=== PATIENT | female | born 1995 | race African-American/Black ===

== ENCOUNTER 2018-03-14 01:50 | Emergency (ER) | payer SELFPAY ==
[~2018-03-14] VITALS: Ht 177.8 cm; Wt 111.1 kg
[~2018-03-14 01:50] MED LIST: HYDR-3454 PO
--- OUTSIDE RECORDS SUMMARY | 2018-03-14 01:58 | XMS REPORT ---
Author Author ETHAN GONSALES Organization [facility] Address [address] [place] [address] Care Team Providers Care Dirt Bike Racer Name Role Phone ETHAN GONSALES Unavailable PROBLEMS Type Condition ICD9-CM Code BEM02-IJ Code Onset Dates Condition Status SNOMED Code Problem Gastroesophageal reflux disease, esophagitis presence not specified K21.9 Active 080008337 Problem Acanthosis nigricans L83 Active 352394485 Problem Attention deficit hyperactivity disorder (ADHD), combined type F90.2 Active 69125156 Problem Anxiety F41.9 Active 42727985 Problem Obesity (BMI 30.0-34.9) E66.9 Active 506502637575873 ALLERGIES No Known Allergies SOCIAL HISTORY Never Assessed PLAN OF CARE Activity Details Follow Up prn Reason: VITAL SIGNS Height 70 in 2016-08-22 Weight 239.0 lbs 2016-08-22 Temperature 97.0 degrees Fahrenheit 2016-08-22 Heart Rate 68 bpm 2016-08-22 Respiratory Rate 20 2016-08-22 BMI 34.29 kg/m2 2016-08-22 Blood pressure systolic 118 mmHg 2016-08-22 Blood pressure diastolic 70 mmHg 2016-08-22 MEDICATIONS Medication Instructions Dosage Frequency Start Date End Date Duration Status Sucralfate 1 GM Orally QID 1 tablet before meals and at bedtime 6h July, Aug, 14 days Active RESULTS No Results PROCEDURES No Known procedures IMMUNIZATIONS No Known Immunizations MEDICAL (GENERAL) HISTORY Type Description Date Medical History childhood asthma Medical History Anxiety disorder Medical History ADHD Surgical History appendectomy Hospitalization History Surgery(s) only
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
--- OUTSIDE RECORDS SUMMARY | 2018-03-14 01:58 | XMS REPORT | Continuity of Care Document ---
Author Author [facility] Organization [facility] Address Unknown Phone Unavailable Allergies Active Description Code Type Severity Reaction Onset Reported/Identified Relationship to Patient Clinical Status Yes No Known Drug Allergies [id number] Drug Allergy Unknown N/A 06/24/2015 Medications There is no data. Problems Date Dx Coded Attending Type Code Diagnosis Diagnosed By 06/24/2015 CURLY BALL, ABNER Layne Ot K35.80 06/30/2015 ABNER RAWLS MD Ot K35.80 07/02/2015 CURLY BALL, ABNER Layne Ot K35.80 Procedures There is no data. Results Test Result Range CBC With Differential/Platelet - 07/17/16 14:55 WBC 5.5 x10E3/uL 3.4-10.8 RBC 4.72 x10E6/uL 3.77-5.28 Hemoglobin 12.7 g/dL 11.1-15.9 Hematocrit 39.4 % 34.0-46.6 MCV 84 fL 79-97 MCH 26.9 pg 26.6-33.0 MCHC 32.2 g/dL 31.5-35.7 RDW 14.2 % 12.3-15.4 Platelets 344 x10E3/uL 150-379 Neutrophils 61 % Lymphs 27 % Monocytes 10 % Eos 2 % Basos 0 % Neutrophils (Absolute) 3.4 x10E3/uL 1.4-7.0 Lymphs (Absolute) 1.5 x10E3/uL 0.7-3.1 Monocytes(Absolute) 0.6 x10E3/uL 0.1-0.9 Eos (Absolute) 0.1 x10E3/uL 0.0-0.4 Baso (Absolute) 0.0 x10E3/uL 0.0-0.2 Immature Granulocytes 0 % Immature Grans (Abs) 0.0 x10E3/uL 0.0-0.1 Comp. Metabolic Panel (14) - 07/17/16 14:55 Glucose, Serum 82 mg/dL 65-99 BUN 13 mg/dL 6-20 Creatinine, Serum 0.64 mg/dL 0.57-1.00 eGFR If NonAfricn Am 130 mL/min/1.73 >59 eGFR If Africn Am 150 mL/min/1.73 >59 BUN/Creatinine Ratio 20 9-23 Sodium, Serum 143 mmol/L 134-144 Potassium, Serum 4.2 mmol/L 3.5-5.2 Chloride, Serum 102 mmol/L 96-106 Carbon Dioxide, Total 24 mmol/L 18-29 Calcium, Serum 9.4 mg/dL 8.7-10.2 Protein, Total, Serum 7.1 g/dL 6.0-8.5 Albumin, Serum 4.6 g/dL 3.5-5.5 Globulin, Total 2.5 g/dL 1.5-4.5 A/G Ratio 1.8 1.2-2.2 Bilirubin, Total 0.5 mg/dL 0.0-1.2 Alkaline Phosphatase, S 76 IU/L 39-117 AST (SGOT) 19 IU/L 0-40 ALT (SGPT) 18 IU/L 0-32 Lipid Panel - 07/17/16 14:55 Cholesterol, Total 167 mg/dL 100-169 Triglycerides 75 mg/dL 0-89 HDL Cholesterol 45 mg/dL >39 VLDL Cholesterol Dre 15 mg/dL 5-40 LDL Cholesterol Calc 107 mg/dL 0-109 Hemoglobin A1c - 07/17/16 14:55 Hemoglobin A1c 5.3 % 4.8-5.6 Thyroid Antibodies - 07/17/16 14:55 Thyroid Peroxidase (TPO) Ab 22 IU/mL 0-26 Thyroglobulin Antibody 3.4 IU/mL 0.0-0.9 Insulin - 07/17/16 14:55 Insulin 15.7 uIU/mL 2.6-24.9 TSH - 08/18/16 13:11 TSH 1.700 uIU/mL 0.450-4.500 Encounters ACCT No. Visit Date/Time Discharge Status Pt. Type Provider Facility Loc./Unit Complaint [id number] 06/24/2015 03:50:00 06/24/2015 16:00:00 DIS Outpatient CURLY BALL, ABNER Layne [facility] [id number] 07/18/2016 12:08:00 Document Registration [id number] 03/12/2018 11:50:00 ACT Outpatient [facility] [id number] 08/19/2016 07:06:00 Document Registration
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
--- OUTSIDE RECORDS SUMMARY | 2018-03-14 01:58 | XMS REPORT ---
Author STANLEY Stanley Organization [employer] Address Unknown Phone Unavailable Care Team Providers Care Language Specialist Name Role Phone STANLEY GEIGER CP Unavailable Allergies, Adverse Reactions, Alerts Substance Reaction Event Type N.K.D.A. Info Not Available Non Drug Allergy Problems Problem Type Condition Code Onset Dates Condition Status Problem Generalized anxiety disorder F41.1 Active Problem Depressive disorder, not elsewhere classified F32.9 Active Problem Attention deficit disorder with hyperactivity F90.9 Active Assessment Dental examination Z01.20 Active Problem Stress headaches F45.41 Active Problem Obesity E66.9 Active Medications No Known Medications Procedures Procedure Coding System Code Date RESIN COMPOS - 3 SURFACES POSTERIOR CPT-4 D2393 June 10, 2015 Vital Signs Date/Time: June 10, 2015 Blood Pressure Diastolic 75 mmHg Blood Pressure Systolic 110 mmHg Results No Known Results Summary Purpose [employer] Submission
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
--- OUTSIDE RECORDS SUMMARY | 2018-03-14 01:58 | XMS REPORT ---
Author Author GETACHEW IZAGUIRRE [facility] Address [address] [place] [address] Care Team Providers Care [employer] Advisor Name Role Phone GETACHEW IZAGUIRRE Unavailable PROBLEMS Type Condition ICD9-CM Code [id number] Code Onset Dates Condition Status SNOMED Code Problem Gastroesophageal reflux disease, esophagitis presence not specified K21.9 Active 011607370 Problem Acanthosis nigricans L83 Active 448474945 Problem Attention deficit hyperactivity disorder (ADHD), combined type F90.2 Active 99611234 Problem Anxiety F41.9 Active 95501304 Problem Obesity (BMI 30.0-34.9) E66.9 Active [id number] ALLERGIES No Information SOCIAL HISTORY Never Assessed PLAN OF CARE VITAL SIGNS MEDICATIONS No Known Medications RESULTS No Results PROCEDURES No Known procedures IMMUNIZATIONS No Known Immunizations MEDICAL (GENERAL) HISTORY Type Description Date Medical History childhood asthma Medical History Anxiety disorder Medical History ADHD Surgical History appendectomy Hospitalization History Surgery(s) only
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
--- NOTE | 2018-03-14 02:25 | ED General ---
General Chief Complaint: Oral/Throat Problems Stated Complaint: SORE THROAT,POSS FEVER,VOMITING Nursing Triage Note: sore throat x3 days, reflux tonight. Nursing Sepsis Screen: No Definite Risk Source of Information: Patient Exam Limitations: No Limitations History of Present Illness Date Seen by Provider: Mar 14, 2018 Time Seen by Provider: 02:00 Initial Comments This 22-year-old young lady presents to the emergency room with sore throat, fever, and recent vomiting. She has had sore throat 3 days. She was seen at the clinic yesterday. No antibiotics were prescribed. She reports a strep test was negative. Since symptoms have been present for 3 days, influenza screening and treatment would not be appropriate. She is afebrile at present. She states she decided to come to the emergency room tonight because her throat felt tight and she was concerned that she may have trouble breathing. Allergies and Home Medications Allergies Coded Allergies: No Known Drug Allergies (Unverified , 06/24/15) Patient Home Medication List Home Medication List Reviewed: Yes Review of Systems Review of Systems Constitutional: see HPI EENTM: see HPI Respiratory: see HPI Cardiovascular: no symptoms reported Gastrointestinal: see HPI Genitourinary: no symptoms reported : No Musculoskeletal: no symptoms reported Skin: no symptoms reported Psychiatric/Neurological: No Symptoms Reported Hematologic/Lymphatic: No Symptoms Reported Immunological/Allergic: no symptoms reported Past Wsdptbr-Xvqzlo-Otkzgn Hx Past Med/Social Hx: Reviewed Nursing Past Med/Soc Hx Patient Social History Alcohol Use: Denies Use Recreational Drug Use: No Smoking Status: Never a Smoker 2nd Hand Smoke Exposure: No Recent Foreign Travel: No Contact w/Someone Who Travel: No Recent Infectious Disease Expo: No Recent Hopitalizations: No Immunizations Up To Date Tetanus Booster (TDap): Unknown PED Vaccines UTD: Yes Seasonal Allergies Seasonal Allergies: Yes Past Medical History Surgeries: Yes Appendectomy Respiratory: No Currently Using CPAP: No Currently Using BIPAP: No Cardiac: No Neurological: No : No Reproductive Disorders: No Female Reproductive Disorders: Denies Sexually Transmitted Disease: No HIV/AIDS: No Genitourinary: No Gastrointestinal: No Musculoskeletal: No Endocrine: No HEENT: No Cancer: No Psychosocial: No Integumentary: No Blood Disorders: No Family Medical History FH: anemia 20 MOTHER Physical Exam Vital Signs Vital Signs - First Documented 03/14/18 01:55 Temp 98.8 Pulse 99 Resp 16 B/P (MAP) 124/74 (91) Pulse Ox 99 O2 Delivery Room Air Capillary Refill : Less Than 3 Seconds Height, Weight, BMI Height: 5'10.00" Weight: 245lbs. 0.0oz. 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 Norm as Tested Skin: Normal Color, Warm/Dry Progress/Results/Core Measures Suspected Sepsis Recent Fever Within 48 Hours: No Infection Criteria Present: None New/Unexplained Altered Menta: No Sepsis Screen: No Definite Risk SIRS Temperature:98.8 Pulse: 99 Respiratory Rate: 16 Blood Pressure 124 /74 Mean: 91 Results/Orders Lab Results Laboratory Tests Test 03/14/18 02:05 Range/Units Group A Streptococcus Screen NEGATIVE NEGATIVE My Orders Orders - ZENON BARAJAS MD Rapid Strep A Screen (03/14/18 02:08) Vital Signs/I&O Capillary Refill : Less Than 3 Seconds Blood Pressure Mean: 91 Progress Note : Progress Note On exam patient had no significant swelling of her oropharynx. She was moving air quite well with normal breath sounds. A repeat rapid strep was performed and was also negative. Treatment of symptoms was discussed with the patient. Departure Impression Primary Impression: Flu-like symptoms Additional Impression: Viral pharyngitis Disposition: HOME, SELF-CARE Condition: Improved Departure-Patient Inst. Decision time for Depature: 02:23 Referrals: [facility] (PCP/Family) Primary Care Physician Patient Instructions: Viral Pharyngitis (DC) Add. Discharge Instructions: Drink plenty of clear liquids. For pain you may take ibuprofen up to 600 mg every 6 hours as needed and/or Tylenol (acetaminophen) up to 1000 mg every 6 hours. A backup strep culture will be performed. Results should be available in about 48 hours. You may contact your primary care provider or the ER if you have like to receive results promptly. Return to care if symptoms are worsening or not improving as you expect. All discharge instructions reviewed with patient and/or family. Voiced understanding. Work/School Note: Work Release Form Date Seen in the Emergency Department: Mar 14, 2018 Return to Work: Mar 16, 2018 Restrictions: Return-No Fever (24hrs) ZENON BARAJAS MD Mar 14, 2018 02:25
[2018-03-14 02:27] VITALS: BP 124/74
== END 2018-03-14 02:27 | disposition home or self-care (01) ==
LOC: EDUNIT# 01:50 → ER 01:54
DX: J02.9 Acute pharyngitis, unspecified (principal); J11.1 Influenza due to unidentified influenza virus with other respiratory manifestations; Z90.49 Acquired absence of other specified parts of digestive tract
CPT/HCPCS: 87430; 99284

== ENCOUNTER → 2020-03-23 | Outpatient (CLI) | payer SELFPAY ==
[~2020-03-23] MED LIST changes: -HYDR-3454 PO; +HYDR-3455 PO
--- NOTE | 2020-03-24 12:34 | Diagnostic Imaging Report ---
Indication: Hyperthyroidism. Patient was administered 205 uCi of I-123 orally and a 4 hour and 24-hour thyroid uptake was performed. In addition, thyroid scan was performed. No prior studies are available for comparison. 4 hour uptake is 38%. 24-hour thyroid uptake is 64%. Normal 24 hour uptake is 10-30%. The thyroid scan demonstrates fairly homogeneous uptake of activity throughout both lobes of the thyroid gland. No definite hot or cold nodules are detected. IMPRESSION: 1. Unremarkable thyroid scan. 2. Abnormal 24-hour thyroid uptake of 64% consistent with hyperthyroidism. Dictated by: Dictated on workstation # [id number]
== END ==
LOC: CARD 10:06
PROVIDERS: ATTEND Nurse Practitioner
DX: E03.9 Hypothyroidism, unspecified (principal); R93.89 Abnormal findings on diagnostic imaging of other specified body structures
CPT/HCPCS: 78014; A9516